=== PATIENT | female | born 1985 | race Caucasian/White ===

== ENCOUNTER 2017-03-04 07:39 | Inpatient (IN) | payer OTHER ==
[~2017-03-04] VITALS: Ht 175.3 cm; Wt 87.7 kg
[2017-03-04 08:10] VITALS: BP 128/82
[2017-03-04] MEDS ORDERED: OXYTOCIN 30U/ 0.9% NaCL 500ML 500 ML IV ONE (09:47)
[2017-03-04] MEDS ORDERED: D5%-LACTATED RINGERS 1,000 ML IV SCH (09:47)
[2017-03-04] MEDS ORDERED: FENTANYL PF 100 MCG/2ML IVPush PRN (10:00)
[2017-03-04] MEDS ORDERED: CALCIUM CARBONATE 500 MG TAB.CHEW PO PRN (10:00)
[2017-03-04] MEDS ORDERED: FENTANYL PF 100 MCG/2ML IV PRN (10:00)
[2017-03-04] MEDS ORDERED: ONDANSETRON 2MG/ML, 2ML IVPush PRN (10:00)
[2017-03-04] MEDS ORDERED: MISOPROSTOL 200 MCG TABLET ONE (10:08)
[2017-03-04] MEDS ORDERED: LIDOCAINE 1%, 20ML ONE (10:08)
[2017-03-04] MEDS ORDERED: OXYTOCIN 30U/ 0.9% NaCL 500ML 500 ML ONE (10:09)
[2017-03-04] MEDS ORDERED: NEWBORN KIT ONE (10:09)
[2017-03-04] MEDS: LACTATED RINGERS 1,000 ML IV SCH ×2 (10:10→13:55)
[2017-03-04] MEDS ORDERED: LACTATED RINGERS 1,000 ML IV SCH (10:51)
[2017-03-04] MEDS ORDERED: FENTANYL/BUPIV./NS/PF 250 ML EPIDCONT SCH (10:51)
[2017-03-04] MEDS ORDERED: BUPIVACAINE/PF 0.25% ONE (10:53)
[2017-03-04] MEDS ORDERED: FENTANYL/BUPIV./NS/PF 250 ML EPIDCONT ONE (10:53)
[2017-03-04] MEDS ORDERED: EPHEDRINE 50 MG/ML, 1ML IVPush PRN (11:00)
[2017-03-04] MEDS ORDERED: LACTATED RINGERS 1,000 ML IVBOLUS PRN (11:00)
[2017-03-04] MEDS ORDERED: NALOXONE 0.4 MG/ML, 1ML IVPush PRN (11:00)
[2017-03-04] MEDS ORDERED: ONDANSETRON 2MG/ML, 2ML ONE (21:25)
[2017-03-04] MEDS ORDERED: SODIUM CITRATE/CITRIC ACID 30 ML UDC ONE (22:03)
[2017-03-04] MEDS ORDERED: METOCLOPRAMIDE 5 MG/ML, 2ML ONE (22:03)
[2017-03-04] MEDS: OXYTOCIN 30U/ 0.9% NaCL 500ML 500 ML IV SCH (22:37)
[2017-03-04] MEDS ORDERED: ACETAMINOPHEN 325 MG TABLET PO PRN (23:00)
[2017-03-04] MEDS ORDERED: MISOPROSTOL 200 MCG TABLET PO PRN (23:00)
[2017-03-04] MEDS ORDERED: ONDANSETRON 2MG/ML, 2ML IV PRN (23:00)
[2017-03-04] MEDS ORDERED: IBUPROFEN 600 MG TABLET ONE (23:05)
[2017-03-04] MEDS: IBUPROFEN 600 MG TABLET PO PRN (23:10)
[2017-03-05] VITALS (7 sets, daily range): BP systolic 107–123; BP diastolic 66–78
[2017-03-05] MEDS: OXYcodone/APAP 5/325MG TABLET PO PRN ×6 (02:08→22:49)
[2017-03-05] MEDS: IBUPROFEN 600 MG TABLET PO PRN ×3 (04:50→18:31)
[2017-03-05 07:36] LABS: DIFF TOTAL CELLS COUNTED 100 CELL DIFF
[2017-03-05 07:45] LABS: VERIFY COUNTS? YES
[2017-03-05] MEDS: OXYTOCIN 30U/ 0.9% NaCL 500ML 500 ML IV SCH ×2 (08:37→18:37)
[2017-03-05] MEDS: PRENATAL VIT/IRON/FA 1 EACH TABLET PO SCH (09:49)
[2017-03-05] MEDS: DOCUSATE 100 MG CAPSULE PO PRN ×2 (09:49→22:49)
[2017-03-06] MEDS: OXYcodone/APAP 5/325MG TABLET PO PRN ×2 (03:14→11:11)
[2017-03-06] MEDS: IBUPROFEN 600 MG TABLET PO PRN ×2 (03:14→11:11)
[2017-03-06] MEDS: OXYTOCIN 30U/ 0.9% NaCL 500ML 500 ML IV SCH (04:37)
[2017-03-06 08:15] VITALS: BP 113/74
[2017-03-06] MEDS: PRENATAL VIT/IRON/FA 1 EACH TABLET PO SCH (08:46)
[2017-03-06] MEDS: DOCUSATE 100 MG CAPSULE PO PRN (08:46)
[2017-03-06] MEDS ORDERED: OXYC-302 PO (14:53)
[2017-03-06] MEDS ORDERED: IBUP-1222 PO (14:54)
== END 2017-03-06 15:30 | disposition home or self-care (01) | DRG 775 ==
LOC: LDOP 07:39 → LDIP 09:53 → 2NW 03-05 00:37
PROVIDERS: ADMIT Obstetrics & Gynecology Gynecology; ATTEND Obstetrics & Gynecology Gynecology
PROC: 10D07Z6 Extraction of Products of Conception, Vacuum, Via Natural or Artificial Opening (ICD-10-PCS; principal; 2017-03-04)
PROC: 0W8NXZZ Division of Female Perineum, External Approach (ICD-10-PCS; 2017-03-04)
DX: O76 Abnormality in fetal heart rate and rhythm complicating labor and delivery (principal); Z37.0 Single live birth; O69.81X0 Labor and delivery complicated by cord around neck, without compression, not applicable or unspecified; Z3A.38 38 weeks gestation of pregnancy
CPT/HCPCS: 36415; 85025; 86850; 86900; J2405; J3490; J2590; J3010; J7120; J7121

== ENCOUNTER 2018-10-12 10:16 | Emergency (ER) | payer OTHER ==
[~2018-10-12] VITALS: Ht 175.3 cm; Wt 85.0 kg
[~2018-10-12 10:16] MED LIST: IBUP-1222 PO; OXYC-302 PO
--- NOTE | 2018-10-12 10:32 | NUR ---
Assumed care of patient. C/O N/V/D and generalized ABD pain after taking Benadryl last night. C/O LBP radiating down BLE since getting sick last night. Family at bedside. Will continue to monitor.
[2018-10-12] MEDS ORDERED: ONDANSETRON 2MG/ML, 2ML IVPush ONE (11:00)
[2018-10-12] MEDS ORDERED: SODIUM CHLORIDE 0.9% 1,000ML IVBOLUS ONE (11:00)
[2018-10-12] MEDS ORDERED: ONDANSETRON 2MG/ML, 2ML ONE (11:09)
--- NOTE | 2018-10-12 11:14 | NUR ---
IV PLACED, LABS DRAWN, FLUIDS STARTED AND PT MEDICATED FOR NAUSEA. WARM BLANKETS PROVIDED FOR COMFORT. CALL LIGHT WITHIN REACH. AWAITING TEST RESULTS AT THSI TIME.
[2018-10-12 11:34] LABS: BASOPHILS % (AUTO) 0 % (0-1); EOSINOPHILS # (AUTO) 0.01 x10^3/uL (0-0.4); EOSINOPHILS % (AUTO) 0 % (1-7); LYMPHOCYTES % (AUTO) 7 % (22-44); MD NO; MEAN CORPUSCULAR HEMOGLOBIN 29.6 pg (27.0-34.8); MEAN CORPUSCULAR HGB CONC 33.7 g/dL (32.4-35.8); MEAN CORPUSCULAR VOLUME 87.9 fL (80-100); MEAN PLATELET VOLUME 9.5 fL (7.4-10.4); MONOCYTES # (AUTO) 0.25 x10^3/uL (0.2-0.8); MONOCYTES % (AUTO) 3 % (2-9); NEUTROPHILS # (AUTO) 6.75 x10^3/uL (1.8-6.8); NEUTROPHILS % (AUTO) 90 % (42-75); PLATELET COUNT 285 x10^3/uL (130-400); RED BLOOD COUNT 5.29 x10^6/uL (3.82-5.3); RED CELL DISTRIBUTION WIDTH 13.3 % (9.6-15.2)
[2018-10-12 11:34] LABS: MICROSCOPIC NOT IND
[2018-10-12 11:35] LABS: CULTURE INDICATED? NO
[2018-10-12 11:36] LABS: HCG UR SG 1.024 (1.003-1.030)
[2018-10-12 11:44] VITALS: BP 114/65
[2018-10-12 11:44] LABS: ALANINE AMINOTRANSFERASE 30 U/L (12-78); ALBUMIN 3.7 g/dL (3.4-5.0); ANION GAP 6 mmol/L (5-15); CALCIUM 8.2 mg/dL (8.5-10.1); CHLORIDE 110 mmol/L (98-107); CREATININE 0.84 mg/dL (0.55-1.02)
[2018-10-12 11:46] LABS: ALKALINE PHOSPHATASE 69 U/L (45-117); BILIRUBIN,TOTAL 0.5 mg/dL (0.2-1.0); TOTAL PROTEIN 7.3 g/dL (6.4-8.2)
--- NOTE | 2018-10-12 11:46 | NUR ---
FLUIDS COMPLETED. PT STATES NAUSEA HAS IMPROVED BUT PAIN PERSISTS. VSS AT THIS TIME. CALL LIGHT WITHIN REACH. AWAITING RESULTS AND FURTHER ORDERS
[2018-10-12] MEDS ORDERED: HYDROcodone/APAP 5/325 TABLET ONE (11:51)
--- NOTE | 2018-10-12 11:57 | NUR ---
ORDERS RECEIVED FOR PAIN MEDS, PT MEDICATED PER MAR FOR BACK PAIN. ORDERS TO HOLD BENTYL AT THIS TIME. AWAITING RECHECK BY MD AND DISPO
[2018-10-12] MEDS ORDERED: DICYCLOMINE 10 MG/ML, 2ML IM ONE (12:00)
[2018-10-12] MEDS ORDERED: HYDROcodone/APAP 5/325 TABLET PO PRN (12:00)
== END 2018-10-12 12:48 | disposition home or self-care (01) ==
LOC: ED 10:55
DX: S39.012A Strain of muscle, fascia and tendon of lower back, initial encounter (principal); R11.2 Nausea with vomiting, unspecified; R19.7 Diarrhea, unspecified; X58.XXXA Exposure to other specified factors, initial encounter; Y93.89 Activity, other specified; Y92.89 Other specified places as the place of occurrence of the external cause; Y99.8 Other external cause status
CPT/HCPCS: 36415; 80053; 81003; 81025; 83690; 85025; 96361; 96374; 99283; J2405; J7030

== ENCOUNTER → 2018-12-20 | Outpatient (CLI) | payer OTHER ==
[2018-12-20 10:09] LABS: BASOPHILS # (AUTO) 0.09 x10^3/uL (0-0.1); BASOPHILS % (AUTO) 1 % (0-1); EOSINOPHILS # (AUTO) 0.21 x10^3/uL (0-0.4); EOSINOPHILS % (AUTO) 3 % (1-7); LYMPHOCYTES # (AUTO) 2.53 x10^3/uL (1-3.4); LYMPHOCYTES % (AUTO) 38 % (22-44); MD NO; MEAN CORPUSCULAR HEMOGLOBIN 29.5 pg (27.0-34.8); MEAN CORPUSCULAR HGB CONC 33.8 g/dL (32.4-35.8); MEAN CORPUSCULAR VOLUME 87.5 fL (80-100); MEAN PLATELET VOLUME 9.9 fL (7.4-10.4); MONOCYTES # (AUTO) 0.56 x10^3/uL (0.2-0.8); MONOCYTES % (AUTO) 8 % (2-9); NEUTROPHILS # (AUTO) 3.33 x10^3/uL (1.8-6.8); NEUTROPHILS % (AUTO) 50 % (42-75); PLATELET COUNT 250 x10^3/uL (130-400); RED BLOOD COUNT 4.88 x10^6/uL (3.82-5.3); RED CELL DISTRIBUTION WIDTH 13.6 % (9.6-15.2)
[2018-12-20 10:17] LABS: ALBUMIN 3.9 g/dL (3.4-5.0); ANION GAP 4 mmol/L (5-15); CALCIUM 8.2 mg/dL (8.5-10.1); CHLORIDE 112 mmol/L (98-107); CHOLESTEROL, TOTAL 175 mg/dL (140-239)
[2018-12-20 10:28] LABS: ALANINE AMINOTRANSFERASE 23 U/L (12-78); ALKALINE PHOSPHATASE 63 U/L (45-117); BILIRUBIN,TOTAL 0.6 mg/dL (0.2-1.0); CHOL/HDL RATIO 2.7; CREATININE 0.74 mg/dL (0.55-1.02); HDL CHOL % 37 % (28-40); HDL CHOLESTEROL (DIRECT) 65 mg/dL (40-60); LDL CHOLESTEROL,CALCULATED 101 mg/dL (54-169); LDL/HDL RATIO 1.6 (0.5-3.0); TRIGLYCERIDES 45 mg/dL (50-200); VLDL CHOLESTEROL 9 mg/dL (0-25)
== END | disposition home or self-care (01) ==
LOC: LAB 09:50
PROVIDERS: ATTEND Nurse Practitioner Family
DX: Z00.00 Encounter for general adult medical examination without abnormal findings (principal); J45.909 Unspecified asthma, uncomplicated
CPT/HCPCS: 36415; 80053; 80061; 82306; 84443; 85025

== ENCOUNTER 2019-05-26 14:01 | Outpatient (CLI) | payer OTHER ==
[2019-05-26 15:20] LABS: FREE T4 (FREE THYROXINE) 1.26 ng/dL (0.76-1.46)
== END 2019-05-26 23:59 | disposition home or self-care (01) ==
LOC: LAB 14:01
PROVIDERS: ATTEND Obstetrics & Gynecology Gynecology
DX: N92.6 Irregular menstruation, unspecified (principal)
CPT/HCPCS: 36415; 84146; 84439; 84443

== ENCOUNTER 2019-07-01 13:38 | Outpatient (CLI) | payer OTHER | END 2019-07-01 23:59 | disposition home or self-care (01) | LOC: LAB 13:38 | PROVIDERS: ATTEND Obstetrics & Gynecology Gynecology | DX: N92.6 Irregular menstruation, unspecified (principal) | CPT/HCPCS: 36415; 82397; 82670; 83001 ==

== ENCOUNTER → 2019-07-10 | Outpatient (CLI) | payer OTHER ==
[~2019-07-10] MED LIST changes: +OMNIPAQUE 300 MG/ML, 10ML VIAL ONE
== END | disposition home or self-care (01) ==
LOC: RAD 12:25
PROVIDERS: ATTEND Obstetrics & Gynecology Gynecology
DX: N93.9 Abnormal uterine and vaginal bleeding, unspecified (principal); N97.9 Female infertility, unspecified
CPT/HCPCS: 74740; Q9967

== ENCOUNTER 2019-12-31 12:00 | Outpatient (CLI) | payer OTHER ==
[~2019-12-31 12:00] MED LIST changes: -OMNIPAQUE 300 MG/ML, 10ML VIAL ONE
== END 2019-12-31 23:59 | disposition home or self-care (01) ==
LOC: LAB 12:00
PROVIDERS: ATTEND Obstetrics & Gynecology Maternal & Fetal Medicine
DX: Z36.9 Encounter for antenatal screening, unspecified (principal)
CPT/HCPCS: 84163; 84702; 86336

== ENCOUNTER 2020-06-20 23:16 | Outpatient (CLI) | payer OTHER ==
[~2020-06-20] VITALS: Ht 175.3 cm; Wt 90.0 kg
== END 2020-06-21 01:45 | disposition home or self-care (01) ==
LOC: LDOP 23:16
PROVIDERS: ATTEND Obstetrics & Gynecology
DX: O26.893 Other specified pregnancy related conditions, third trimester (principal); R10.9 Unspecified abdominal pain; Z3A.38 38 weeks gestation of pregnancy
CPT/HCPCS: 59025

== ENCOUNTER 2020-06-22 09:40 | Inpatient (IN) | payer OTHER ==
[~2020-06-22] VITALS: Ht 175.3 cm; Wt 90.5 kg
[2020-06-22] MEDS ORDERED: LIDOCAINE 1%, 20ML ONE (09:47)
[2020-06-22] MEDS ORDERED: MISOPROSTOL 200 MCG TABLET ONE (09:47)
[2020-06-22] MEDS ORDERED: NEWBORN KIT ONE (09:47)
[2020-06-22] MEDS ORDERED: OXYTOCIN 30U/ 0.9% NaCL 500ML 500 ML ONE ×2 (09:48→16:37)
[2020-06-22] MEDS ORDERED: ONDANSETRON 2MG/ML, 2ML IVPush PRN (10:00)
[2020-06-22] MEDS ORDERED: OXYTOCIN 30U/ 0.9% NaCL 500ML 500 ML IV PRN ×2 (10:00→11:00)
[2020-06-22] MEDS ORDERED: PLEASE ENTER HEIGHT AND WEIGHT MC SCH (10:00)
[2020-06-22] MEDS ORDERED: TERBUTALINE 1 MG/ML, 1ML SQ PRN (10:00)
[2020-06-22] MEDS ORDERED: FENTANYL PF 100 MCG/2ML IVPush PRN (10:00)
[2020-06-22] MEDS ORDERED: FENTANYL PF 100 MCG/2ML IV PRN (10:00)
[2020-06-22] MEDS ORDERED: FENTANYL/BUPIV./NS/PF 250 ML EPIDCONT SCH ×2 (10:00→12:00)
[2020-06-22] MEDS ORDERED: TERBUTALINE 1 MG/ML, 1ML IVPush PRN (10:00)
[2020-06-22] MEDS: LACTATED RINGERS 1,000 ML IV SCH ×2 (10:04→11:09)
[2020-06-22 10:18] VITALS: BP 119/83
[2020-06-22 10:32] LABS: BASOPHILS % (AUTO) 1 % (0-1); EOSINOPHILS % (AUTO) 1 % (1-7); LYMPHOCYTES % (AUTO) 19 % (22-44); MEAN CORPUSCULAR HEMOGLOBIN 28.7 pg (27.0-34.8); MEAN CORPUSCULAR HGB CONC 33.2 g/dL (32.4-35.8); MEAN PLATELET VOLUME 9.4 fL (7.4-10.4); MONOCYTES % (AUTO) 10 % (2-9); NEUTROPHILS % (AUTO) 70 % (42-75); PLATELET COUNT 208 x10^3/uL (130-400); RED CELL DISTRIBUTION WIDTH 12.7 % (9.6-15.2)
[2020-06-22 10:36] LABS: MD NO
[2020-06-22] MEDS ORDERED: D5%-LACTATED RINGERS 1,000 ML IV SCH (11:00)
[2020-06-22] MEDS ORDERED: LACTATED RINGERS 1,000 ML IV SCH ×2 (11:00→12:00)
[2020-06-22] MEDS ORDERED: OXYTOCIN 30U/ 0.9% NaCL 500ML 500 ML IV ONE (11:00)
[2020-06-22] MEDS ORDERED: FENTANYL/BUPIV./NS/PF 250 ML EPIDCONT ONE (11:09)
[2020-06-22] MEDS ORDERED: LACTATED RINGERS 1,000 ML IVBOLUS PRN (12:00)
[2020-06-22] MEDS ORDERED: NALOXONE 0.4 MG/ML, 1ML IVPush PRN (12:00)
[2020-06-22] MEDS ORDERED: EPHEDRINE 50 MG/ML, 1ML IVPush PRN (12:00)
[2020-06-22] MEDS: EPHEDRINE 50 MG/ML, 1ML IVPush PRN ×3 (12:02→13:02)
[2020-06-22] MEDS ORDERED: ONDANSETRON 2MG/ML, 2ML IV PRN (16:00)
[2020-06-22] MEDS ORDERED: MISOPROSTOL 200 MCG TABLET PR PRN (16:00)
[2020-06-22] MEDS ORDERED: SIMETHICONE 80 MG CHEW TAB PO PRN (16:00)
[2020-06-22] MEDS ORDERED: IBUPROFEN 600 MG TABLET ONE (16:09)
[2020-06-22] MEDS: IBUPROFEN 600 MG TABLET PO PRN ×2 (16:12→22:30)
[2020-06-22] MEDS: OXYTOCIN 30U/ 0.9% NaCL 500ML 500 ML IV SCH (17:08)
[2020-06-22] MEDS: DOCUSATE 100 MG CAPSULE PO PRN (18:56)
[2020-06-22] MEDS: OXYcodone/APAP 5/325MG TABLET PO PRN (18:56)
[2020-06-22 19:45] VITALS: BP 110/73
[2020-06-22] MEDS: OXYcodone IR 5MG TABLET PO PRN (22:54)
[2020-06-22] MEDS: ACETAMINOPHEN 325 MG TABLET PO PRN (22:54)
[2020-06-23 00:02] VITALS: BP 99/62
[2020-06-23 00:20] LABS: BASOPHILS % (AUTO) 1 % (0-1); EOSINOPHILS % (AUTO) 1 % (1-7); LYMPHOCYTES % (AUTO) 15 % (22-44); MEAN CORPUSCULAR HEMOGLOBIN 28.4 pg (27.0-34.8); MEAN CORPUSCULAR HGB CONC 32.6 g/dL (32.4-35.8); MEAN PLATELET VOLUME 9.8 fL (7.4-10.4); MONOCYTES % (AUTO) 7 % (2-9); NEUTROPHILS % (AUTO) 76 % (42-75); PLATELET COUNT 180 x10^3/uL (130-400); RED BLOOD COUNT 3.07 x10^6/uL (3.82-5.3); RED CELL DISTRIBUTION WIDTH 12.7 % (9.6-15.2)
[2020-06-23 00:22] LABS: MD NO
[2020-06-23] MEDS: OXYTOCIN 30U/ 0.9% NaCL 500ML 500 ML IV SCH (02:00)
[2020-06-23] MEDS: OXYcodone IR 5MG TABLET PO PRN ×5 (03:00→20:45)
[2020-06-23] MEDS: ACETAMINOPHEN 325 MG TABLET PO PRN ×4 (03:00→16:22)
[2020-06-23 04:00] VITALS: BP 99/65
[2020-06-23] MEDS: IBUPROFEN 600 MG TABLET PO PRN ×4 (04:29→22:24)
[2020-06-23] MEDS ORDERED: OXYcodone IR 5MG TABLET ONE (07:58)
[2020-06-23 08:00] VITALS: BP 90/51
[2020-06-23] MEDS: PRENATAL VIT/IRON/FA 1 EACH TABLET PO SCH (08:02)
[2020-06-23] MEDS: DOCUSATE 100 MG CAPSULE PO PRN ×2 (08:02→19:06)
[2020-06-23] MEDS ORDERED: FERR325T5 PO (10:05)
[2020-06-23] MEDS ORDERED: IBUP-1222 PO (10:05)
[2020-06-23] MEDS ORDERED: OXYC-302 PO (10:05)
[2020-06-23 19:00] VITALS: BP 111/72
[2020-06-24] MEDS: OXYcodone IR 5MG TABLET PO PRN ×2 (01:10→04:59)
[2020-06-24] MEDS: IBUPROFEN 600 MG TABLET PO PRN (04:55)
[2020-06-24 07:25] VITALS: BP 120/82
[2020-06-24] MEDS: PRENATAL VIT/IRON/FA 1 EACH TABLET PO SCH (09:18)
[2020-06-24] MEDS: OXYcodone/APAP 5/325MG TABLET PO PRN (09:18)
[2020-06-24] MEDS: DOCUSATE 100 MG CAPSULE PO PRN (09:18)
== END 2020-06-24 09:30 | disposition home or self-care (01) | DRG 806 ==
LOC: LDOP 09:40 → LDIP 09:42 → 2NW 18:09
PROVIDERS: ADMIT Obstetrics & Gynecology; ATTEND Obstetrics & Gynecology
PROC: 10E0XZZ Delivery of Products of Conception, External Approach (ICD-10-PCS; principal; 2020-06-22)
PROC: 0KQM0ZZ Repair Perineum Muscle, Open Approach (ICD-10-PCS; 2020-06-22)
PROC: 3E0R3BZ Introduction of Anesthetic Agent into Spinal Canal, Percutaneous Approach (ICD-10-PCS; 2020-06-22)
PROC: 00HU33Z Insertion of Infusion Device into Spinal Canal, Percutaneous Approach (ICD-10-PCS; 2020-06-22)
DX: O99.02 Anemia complicating childbirth (principal); D62 Acute posthemorrhagic anemia; Z37.0 Single live birth; Z3A.38 38 weeks gestation of pregnancy; D50.9 Iron deficiency anemia, unspecified; O70.1 Second degree perineal laceration during delivery; Z20.828 Contact with and (suspected) exposure to other viral communicable diseases; O71.82 Other specified trauma to perineum and vulva
CPT/HCPCS: 36415; 85025; 86592; 86850; 86900; 87635; G0378; J2590; J3010; J7120